=== PATIENT | male | born 1975 | race Hispanic/Latino ===

== ENCOUNTER 2018-02-03 11:52 | Emergency (ER) | payer SELFPAY ==
[2018-02-03 13:59] LABS: EOSINOPHILS % (AUTO) 5.8 % (0.0-8.0); HEMATOCRIT 34.8 % (42-54); LYMPHOCYTES % (AUTO) 26.8 % (21.0-51.0); MEAN CORPUSCULAR HEMOGLOBIN 24.5 pg (27.0-33.0); MEAN CORPUSCULAR HGB CONC 33.1 g/dL (32.0-36.0); MEAN CORPUSCULAR VOLUME 74.1 fL (79-99); MONOCYTES % (AUTO) 12.3 % (3.0-13.0); NEUTROPHILS % (AUTO) 54.1 % (40.0-77.0); PLATELET COUNT (AUTO) 409 K/uL (130-400); RED CELL DISTRIBUTION WIDTH 16.4 % (11.0-15.5); WHITE BLOOD COUNT (AUTO) 8.1 K/uL (4.8-10.8)
[2018-02-03 14:06] LABS: POTASSIUM 3.8 mmol/L (3.5-5.1)
[2018-02-03] MEDS ORDERED: CEFTRIAXONE SODIUM 1 GM ONE (14:57)
== END 2018-02-03 15:20 | disposition home or self-care (01) ==
LOC: EDH 11:52
DX: L03.115 Cellulitis of right lower limb (principal); R60.0 Localized edema
CPT/HCPCS: 36415; 80048; 85025; 93971; 96374; 99285; J0696

== ENCOUNTER 2018-02-07 15:21 | Emergency (ER) | payer SELFPAY ==
[2018-02-07 17:04] LABS: EOSINOPHILS % (AUTO) 4.5 % (0.0-8.0); HEMATOCRIT 36.7 % (42-54); LYMPHOCYTES % (AUTO) 20.6 % (21.0-51.0); MEAN CORPUSCULAR HEMOGLOBIN 24.3 pg (27.0-33.0); MEAN CORPUSCULAR VOLUME 73.6 fL (79-99); MONOCYTES % (AUTO) 10.8 % (3.0-13.0); NEUTROPHILS % (AUTO) 63.1 % (40.0-77.0); NUCLEATED RED BLOOD CELLS 0.1 % (0.0-0.19); PLATELET COUNT (AUTO) 412 K/uL (130-400); RED BLOOD CELL COUNT(AUTO) 4.99 MIL/uL (4.50-6.20); RED CELL DISTRIBUTION WIDTH 16.9 % (11.0-15.5); WHITE BLOOD COUNT (AUTO) 10.3 K/uL (4.8-10.8)
[2018-02-07 17:14] LABS: CREATININE 1.1 mg/dL (0.5-1.5)
[2018-02-07 17:19] LABS: ALBUMIN 3.2 g/dL (3.5-5.0); BILIRUBIN,TOTAL 0.2 mg/dL (0.2-1.0); TOTAL PROTEIN, SERUM 7.7 g/dL (6.0-8.3)
[2018-02-07] MEDS ORDERED: CEFTRIAXONE SODIUM 1 GM ONE (18:14)
== END 2018-02-07 18:41 | disposition home or self-care (01) ==
LOC: EDH 15:21
DX: L03.115 Cellulitis of right lower limb (principal); Z79.2 Long term (current) use of antibiotics
CPT/HCPCS: 36415; 80053; 85025; 93925; 96374; 99285; J0696